=== PATIENT | female | born 1950 | race Caucasian/White ===

== ENCOUNTER → 2024-08-04 | Outpatient (CLI) | payer MEDICARE ==
[~2024-08-04] MED LIST: FENTanyl CITRate PF 50 MCG/1 ML 2ML VIAL ONE; MIDAZOLAM HCL 1 MG/ML 2ML VIAL ONE
--- NOTE | 2024-08-04 10:00 | NUR ---
MRI LT SHOULDER WITH CONSCIOUS SEDATION PATIENT TOLERATED PROCEDURE WELL. HEPLOCK REMOVED AND PATIENT RECOVERED IN RADIOLOGY ROOM. DISCHARGE INSTRUCTIONS GIVEN AND VERBALIZED UNDERSTANDING. DISCHARGED VIA AMBULATION AT 1000. AAO X3 WITH NO C/O DISCOMFORT.
--- NOTE | 2024-08-04 11:01 | HMCIMG ---
MR SHOULDER LEFT WO REASON: S43.002A Unspecified subluxation of left shoulder joint, initial encounter COMPARISON: None TECHNIQUE: Routine imaging protocol was performed in the axial, oblique sagittal and oblique coronal plane with T1, proton density, T2 and gradient recalled sequences. FINDINGS: There are are AC joint degenerative changes. There is a gap between the acromion and the distal clavicle, this may be a reflection of previous acromioplasty. Previous trauma could result in this appearance as well. The acromion has a type configuration, there is pressure on the underlying supraspinatus tendon, this may result in impingement in the appropriate clinical setting. These findings appear severe in degree. There is thinning and abnormal signal in the underlying rotator cuff tendon consistent with severe tendinosis or tendinitis. There is a focal area of higher signal intensity distally near the tendon insertion, this may be a small focal not distracted the rotator cuff tear. There is a moderate amount of fluid in the subacromial bursa. There may be moderate glenohumeral joint space narrowing consistent with a component of osteoarthritis. There is a small bleb medial joint space effusion. Biceps tendon was not well visualized, the portion within the biceps groove appears thickened with increased signal suggesting tendinitis or tear. IMPRESSION: 1. Abnormal appearing acromion, the approximate is and displaced inferiorly compared to the distal clavicle, this could be a result of previous surgery or of previous trauma. 2. The acromion is hook shaped, there is marked focal indentation on the underlying supraspinatus tendon, these findings can result in impingement syndrome. 3. Moderate degenerative narrowing of the glenohumeral joint space, there is moderate effusion in the subacromial bursa and in the glenohumeral joint space. 4. Marked thinning of the supraspinatus portion of the rotator cuff tendon, with increased signal, consistent with tendinitis, there is also a probable focal full-thickness tear. 5. Abnormal appearing biceps tendon, thickened with increased signal, tendinitis versus a partial tear.
== END | disposition home or self-care (01) ==
LOC: RAH 07:50
PROVIDERS: ATTEND Student in an Organized Health Care Education/Training Program
DX: S46.012A Strain of muscle(s) and tendon(s) of the rotator cuff of left shoulder, initial encounter (principal); M25.412 Effusion, left shoulder; M48.04 Spinal stenosis, thoracic region; M47.894 Other spondylosis, thoracic region; M75.42 Impingement syndrome of left shoulder; M25.512 Pain in left shoulder; S43.002A Unspecified subluxation of left shoulder joint, initial encounter; X58.XXXA Exposure to other specified factors, initial encounter; Y93.89 Activity, other specified; Y92.89 Other specified places as the place of occurrence of the external cause; Y99.8 Other external cause status
CPT/HCPCS: 73221; J3010; J2250 ×2